=== PATIENT | male | born 1970 | race African-American/Black ===

== ENCOUNTER 2023-07-04 08:59 | Emergency (ER) | payer BC ==
[~2023-07-04] VITALS: Ht 180.3 cm; Wt 120.2 kg
[2023-07-04] VITALS (29 sets, daily range): BP systolic 140–245; BP diastolic 70–137
[2023-07-04 09:42] LABS: BASO% 0.1 % (0-3); EOS% 1.7 % (0-8); HEMATOCRIT 43.4 % (39.0-50.0); HEMOGLOBIN 14.3 g/dl (14.0-18.0); IMMATURE GRANULOCYTES 0.3 % (0.0-5.0); LYMPH% 10.6 % (15-41); MEAN CELL VOLUME 92.7 fL CALC (80.0-100.0); MEAN CORPUSCULAR HGB 30.6 pG CALC (26.0-32.0); MEAN CORPUSCULAR HGB CONC 32.9 g/dL CAL (32.0-36.0); MONO% 11.4 % (2-13); NEUT# 7.8 thou/uL (1.82-7.42); NEUT% 75.9 % (42-76); RED BLOOD COUNT 4.68 mill/uL (4.70-6.10); RED CELL DISTRI WIDTH 11.9 % (11.5-15.5)
[2023-07-04 10:08] LABS: ALBUMIN 4.5 g/dL (3.2-5.0); ALKALINE PHOSPHATASE 85 u/l (38-126); ANION GAP 12 (6-22 (CALC)); BILIRUBIN, TOTAL 0.8 mg/dL (0.2-1.3); BUN 14 mg/dL (9-20); BUN/CREATININE RATIO 15 (12-20 (CALC)); CARBON DIOXIDE 29 mmol/l (22-30); CHLORIDE 103 mmol/l (95-108); GFR FOR AFR.AMER. > 60 ML/MIN (>=60 (CALC)); GFR OTHER RACES > 60 ML/MIN (>=60 (CALC)); POTASSIUM 3.7 mmol/l (3.5-5.1); SGOT/AST 30 u/l (17-59); SODIUM 141 mmol/l (137-146); TOTAL PROTEIN 7.9 g/dL (6.3-8.2)
[2023-07-04 14:06] LABS: URINE BILIRUBIN - DIPSTICK Negative (NEGATIVE); URINE BLOOD DIPSTICK Negative (NEGATIVE); URINE GLUCOSE - DIPSTICK Negative (NEGATIVE); URINE KETONE Negative (NEGATIVE); URINE LEUK ESTERASE Negative (NEGATIVE); URINE NITRITE - DIPSTICK Negative (Negative); URINE PROTEIN - DIPSTICK Trace mg/dL (NEG-TRACE); URINE SPECIFIC GRAVITY 1.015; URINE UROBILINOGEN - DIPSTICK 0.2 E.U./dL (0.2)
[2023-07-04 14:08] LABS: URINE COLOR Yellow
[2023-07-04] MEDS ORDERED: LISINOP/HCTZ1 TA2 PO (16:02)
[2023-07-04] MEDS ORDERED: AMLODIPINE BESYL5 MG PO (16:02)
[2023-07-04] MEDS ORDERED: IMODIUM2 MG PO (16:24)
== END 2023-07-04 17:06 | disposition home or self-care (01) | DRG 392 ==
LOC: ED 08:59
PROVIDERS: Family Medicine
DX: A08.11 Acute gastroenteropathy due to Norwalk agent (principal); I10 Essential (primary) hypertension; T46.5X6A Underdosing of other antihypertensive drugs, initial encounter; Z91.128 Patient's intentional underdosing of medication regimen for other reason; F17.200 Nicotine dependence, unspecified, uncomplicated
CPT/HCPCS: Q9967

== ENCOUNTER 2024-05-01 19:59 | Observation (INO) | payer OTHER ==
[~2024-05-01] VITALS: Ht 180.3 cm; Wt 120.0 kg
[~2024-05-01 19:59] MED LIST: AMLODIPINE BESY10 MG PO; AMLODIPINE BESYL5 MG PO; CARVEDILOL25 MG PO; HYDRALAZINE HYD25 MG PO; HYDROCHLOROT25 MG PO; IMODIUM2 MG PO; LISINOP/HCTZ1 TA2 PO; NIFEDIPINE ER60 MG PO
--- NOTE | 2024-05-01 20:13 | NUR ---
PT TO ER BED 1 FOR TRIAGE AT THIS TIME WITH AN EVEN AND STEADY GAIT IN NO APPARENT DISTRESS. CALL LIGHT WITHIN REACH AND PT AWAITING EDP EXAM.
[2024-05-01] MEDS ORDERED: SODIUM CHLORIDE 0.9% 1,000 ML IV ONE ×2 (20:30)
[2024-05-01] MEDS ORDERED: LABETALOL HCL 20 MG/ 4 ML CARTRG IV ONE ×3 (20:30→23:55)
[2024-05-01] MEDS ORDERED: KETOROLAC TROMETHAMINE 30 MG/ML SDV IV ONE (20:30)
[2024-05-01] MEDS ORDERED: ACETAMINOPHEN 500 MG TAB PO ONE (20:30)
[2024-05-01 20:51] LABS: BASO% 0.5 % (0-3); EOS% 3.4 % (0-8); HEMOGLOBIN 12.2 g/dl (14.0-18.0); IMMATURE GRANULOCYTES 0.1 % (0.0-5.0); LYMPH% 12.8 % (15-41); MEAN CELL VOLUME 94.1 fL CALC (80.0-100.0); MONO% 19.7 % (2-13); NEUT# 4.91 thou/uL (1.82-7.42); NEUT% 63.5 % (42-76); RED BLOOD COUNT 3.93 mill/uL (4.70-6.10); RED CELL DISTRI WIDTH 12.1 % (11.5-15.5)
[2024-05-01 21:02] LABS: ALBUMIN 4.1 g/dL (3.2-5.0); ALKALINE PHOSPHATASE 66 u/l (38-126); ANION GAP 5 (6-22 (CALC)); BILIRUBIN, TOTAL 0.3 mg/dL (0.2-1.3); BUN 13 mg/dL (9-20); BUN/CREATININE RATIO 11 (12-20 (CALC)); CARBON DIOXIDE 32 mmol/l (22-30); CHLORIDE 107 mmol/l (95-108); CPK 105 u/l (55-170); CREATININE 1.2 mg/dL (0.7-1.3); ESTIMATED GFR 72 ML/MIN (>=90 (CALC)); POTASSIUM 3.6 mmol/l (3.5-5.1); SGOT/AST 23 u/l (17-59); SODIUM 141 mmol/l (137-146); TOTAL PROTEIN 7.4 g/dL (6.3-8.2)
--- NOTE | 2024-05-01 21:23 | NUR ---
PT SITTING IN RM AWAITING RESULTS AT THIS TIME. CALL LIGHT WITHIN REACH AND PT HAS NO NEEDS OR CONCERNS AT THIS TIME.
[2024-05-01 21:51] VITALS: BP 198/106
[2024-05-01 22:01] VITALS: BP 195/98
[2024-05-01 22:12] LABS: URINE BILIRUBIN - DIPSTICK Negative (NEGATIVE); URINE BLOOD DIPSTICK Negative (NEGATIVE); URINE GLUCOSE - DIPSTICK Negative (NEGATIVE); URINE KETONE 15 mg/dL (NEGATIVE); URINE LEUK ESTERASE Negative (NEGATIVE); URINE NITRITE - DIPSTICK Negative (Negative); URINE PROTEIN - DIPSTICK Trace mg/dL (NEG-TRACE)
[2024-05-01 22:13] LABS: URINE COLOR Yellow
[2024-05-01] MEDS ORDERED: DEXAMETHASONE 2 MG/TAB TAB PO ONE (22:15)
[2024-05-01] MEDS ORDERED: ALBUTEROL SULFATE 2.5 MG VIAL NEB ONE (22:15)
[2024-05-01] MEDS ORDERED: MAGNESIUM SULFATE HEPTAHYDRATE 2 GM in SODIUM CHLORIDE 0.9% 50 ML IV ONE (22:20)
[2024-05-01] MEDS ORDERED: FAMOTIDINE 10MG/ML 2ML SDV IV PRN (22:20)
[2024-05-01] MEDS ORDERED: ONDANSETRON 4 MG/TAB ODT PO PRN (22:20)
[2024-05-01] MEDS ORDERED: IBUPROFEN 800 MG/TAB PO PRN (22:20)
[2024-05-01] MEDS ORDERED: ALUM & MAG HYDROX-SIMETHICONE 30 ML PO PRN (22:20)
[2024-05-01] MEDS ORDERED: cloNIDine HCL 0.1 MG/TAB PO ONE (22:20)
[2024-05-01] MEDS ORDERED: MAGNESIUM HYDROXIDE 30 ML UDC PO PRN (22:20)
[2024-05-01] MEDS ORDERED: ONDANSETRON HCl 4 MG/2 ML SDV IV PRN (22:20)
--- NOTE | 2024-05-01 22:30 | NUR ---
PT SITTING IN RM AWAITING RESULTS AT THIS TIME. CALL LIGHT WITHIN REACH AND PT HAS NO NEEDS OR CONCERNS AT THIS TIME.
[2024-05-01 22:31] VITALS: BP 200/103
[2024-05-01 23:01] VITALS: BP 215/112
[2024-05-01 23:31] VITALS: BP 197/110
--- NOTE | 2024-05-01 23:44 | NUR ---
PT SITTING IN RM WAITING ADMISSION AT THIS TIME. CALL LIGHT WITHIN REACH AND PT HAS NO NEEDS OR CONCERNS AT THIS TIME.
[2024-05-01] MEDS ORDERED: hydrALAZINE HCL 20 MG/ML VIAL(1 ML) IV ONE (23:55)
[2024-05-02] VITALS (11 sets, daily range): BP systolic 157–205; BP diastolic 80–106
--- NOTE | 2024-05-02 00:23 | NUR ---
REPORT CALLED TO DWAYNE JONAS AND PT TO BE TRANSPORTED TO MED SURG AT THIS TIME. PT REQUESTED TO STAY IN HIS CLOTHING SO NO GOWN APPLIED. CALL LIGHT WITHIN REACH.
--- NOTE | 2024-05-02 01:24 | NUR ---
Admission Note Report Given to: DWAYNE JONAS Transported by: X Wheelchair Stretcher Transported with: X Nurse Transporter X Patent IV O2 X Flow Manager Location: ICU X [facility]
[2024-05-02] MEDS ORDERED: hydrALAZINE HCL 20 MG/ML VIAL(1 ML) IV PRN ×3 (01:30→06:35)
[2024-05-02] MEDS ORDERED: [UNRECOGNIZED DRUG - REMARK] PO PRN (01:45)
--- NOTE | 2024-05-02 03:01 | NUR ---
RECEIVED REPORT FROM ED NURSE LORAINE. PATIENT TRANSPORTED VIA BED, ARRIVED MS UNIT AT 0137, PATIENT ALERT ORIENTED AMBUALTORY, IV ON LAC G 20 PATENT FLUSHES WELL, HOOKED ON TELE # 22, DENIES PAIN AT THSI TIME, ADMISSION ASSESSEMENT COMPLETED, PATIENT BREATHING EVEN UNALBORED, ORIENTED TOP ROOM AND CALL LIGHT SYSTEM,
--- NOTE | 2024-05-02 04:50 | NUR ---
PATIENT RESTING IN BED, WATCHING TV, BREATHING UNLABORED CALL LIGHT IN REACHED.
[2024-05-02 06:29] LABS: BASO% 0.3 % (0-3); HEMATOCRIT 37.2 % (39.0-50.0); HEMOGLOBIN 12.2 g/dl (14.0-18.0); IMMATURE GRANULOCYTES 0.2 % (0.0-5.0); LYMPH% 8.4 % (15-41); MEAN CELL VOLUME 93.7 fL CALC (80.0-100.0); MEAN CORPUSCULAR HGB 30.7 pG CALC (26.0-32.0); MEAN CORPUSCULAR HGB CONC 32.8 g/dL CAL (32.0-36.0); MONO% 2.2 % (2-13); NEUT# 5.32 thou/uL (1.82-7.42); NEUT% 88.9 % (42-76); RED BLOOD COUNT 3.97 mill/uL (4.70-6.10); RED CELL DISTRI WIDTH 11.9 % (11.5-15.5)
[2024-05-02] MEDS ORDERED: ACETAMINOPHEN 325 MG/TAB PO PRN (06:35)
[2024-05-02] MEDS ORDERED: MAGNESIUM HYDROXIDE 30 ML UDC PO PRN (06:35)
[2024-05-02] MEDS ORDERED: SODIUM CHLORIDE 0.9% 1,000 ML IV PRN (06:35)
[2024-05-02] MEDS ORDERED: ALBUTEROL SULFATE 8 GM INH IN SCH (06:35)
[2024-05-02 06:42] LABS: CREATININE 1.1 mg/dL (0.7-1.3); POTASSIUM 3.7 mmol/l (3.5-5.1)
--- NOTE | 2024-05-02 08:00 | NUR ---
BEDSIDE REPORT RECEIVED FROM OFF GOING NURSE. PATIENT IN BED ALERT AND ORIENTED X4 AND ABLE TO MAKE NEEDS KNOWN. DENIES PAIN OR DISCOMFORT RESPIRATIONS EVEN AND UNLABORED ON ROOM AIR. AIRBORNE PRECAUTIONS MAINTAINED. SAFETY MEASURES IN PLACE. CALL LIGHT WITHIN REACH.
[2024-05-02] MEDS ORDERED: DEXAMETHASONE 2 MG/TAB TAB PO SCH (09:00)
[2024-05-02] MEDS ORDERED: CARVEDILOL 25 MG/TAB PO SCH ×2 (09:00→21:00)
[2024-05-02] MEDS ORDERED: MULTIPLE VITAMIN TABLET PO SCH (09:00)
[2024-05-02] MEDS ORDERED: NIFEdipine SR 30 MG/TAB PO SCH (09:00)
[2024-05-02] MEDS ORDERED: TIOTROPIUM BROMIDE MONOHYDRATE 2.5 MCG/ACT 4 GM INH IN SCH (09:00)
--- NOTE | 2024-05-02 11:28 | NUR ---
NEW ORDERS RECEIVED FOR ELEVATED BP. PATIENT ASSESSED AND DENIES HEADACHE OR ANY OTHER SYMPTOMS AT THIS TIME. MD IN TO SEE PATIENT. NO CONCERNS VOICED AT THIS TIME. CALL LIGHT WITHIN REACH.
[2024-05-02] MEDS ORDERED: cloNIDine HCL 0.1 MG/TAB PO SCH ×2 (11:30→21:00)
[2024-05-02] MEDS ORDERED: HYZAAR1 TA2 PO (11:43)
[2024-05-02] MEDS ORDERED: ATORVASTATIN CA20 MG PO (11:44)
[2024-05-02] MEDS ORDERED: CARVEDILOL12.5 MG PO (11:44)
[2024-05-02] MEDS ORDERED: CLARITIN-D1 TA4 PO (11:45)
[2024-05-02] MEDS ORDERED: ELDERBERRY PO (11:46)
[2024-05-02] MEDS ORDERED: VITAMIN C 500 M1 TAB PO (11:46)
--- NOTE | 2024-05-02 13:01 | NUR ---
PATIENT SHOWERED INDEPENDENTLY AFTER SET UP. NO CONCERNS VOICED AT THIS TIME. WILL RECHECK BP ONCE PATIENT IS SETTLED FRM ACTIVITY. CALL LIGHT WITHIN REACH.
[2024-05-02] MEDS ORDERED: HYDRALAZINE HYD25 MG PO (13:24)
[2024-05-02] MEDS ORDERED: CLONIDINE HCL0.1 MG PO (13:25)
[2024-05-02] MEDS ORDERED: NIFEDIPINE ER60 MG PO (13:25)
[2024-05-02] MEDS ORDERED: PAXLOVID PO (13:26)
--- NOTE | 2024-05-02 14:02 | NUR ---
DISCHARGE INSTRUCTIONS GIVEN TO PATIENT. PATIENT ALERT AND ORIENTED AND VERBALIZES UNDERSTANDING OF INSTRUCTIONS. DENIES PAIN OR DISCOMFORT AT THIS TIME. PERIPHERAL IV DISCONTINUED. TELEMETRY REMOVED.
--- NOTE | 2024-05-02 14:16 | NUR ---
PATIENT DISCHARGED AND CHOSE TO AMBULATE INDEPENDENTLY WITH ALL BELONGNINGS. NO CONCERNS VOICED AT THIS TIME. MASK PROVIDED FOR PATIENT TO WEAR.
[2024-05-02] MEDS ORDERED: hydrALAZINE HCL 25 MG/TAB PO SCH (15:00)
[2024-05-03] MEDS ORDERED: LOSARTAN Potassium 50 MG/TAB PO SCH (09:00)
--- NOTE | 2024-05-03 15:32 | NUR ---
Discharge follow up call completed 05/03/24. Patient states he is doing well. He did mention he had had hiccups since leaving the hospital. Patient is picking up his prescribed medication today and will take as directed. Patient plans to contact PCP today to schedule a follow up appointment also. No needs or concerns verbalized at this time.
== END 2024-05-02 14:15 | disposition home or self-care (01) | DRG 179 ==
LOC: ED 19:59 → ED-I 21:54 → ED 22:22 → MS2 22:23
PROVIDERS: Internal Medicine; ADMIT Student in an Organized Health Care Education/Training Program; ATTEND Student in an Organized Health Care Education/Training Program
DX: U07.1 COVID-19 (principal); R50.9 Fever, unspecified; R05.9 Cough, unspecified; R53.81 Other malaise; M79.10 Myalgia, unspecified site; I16.0 Hypertensive urgency; I10 Essential (primary) hypertension; J44.9 Chronic obstructive pulmonary disease, unspecified; F17.210 Nicotine dependence, cigarettes, uncomplicated; Z91.199 Patient's noncompliance with other medical treatment and regimen due to unspecified reason
CPT/HCPCS: G0378